=== PATIENT | female | born 2000 | race Caucasian/White ===

== ENCOUNTER 2022-11-20 20:03 | Emergency (ER) | payer OTHER ==
[~2022-11-20] VITALS: Ht 162.6 cm; Wt 59.0 kg
[2022-11-20] MEDS ORDERED: CIPRO500 MG PO (23:23)
== END 2022-11-20 23:56 | disposition home or self-care (01) ==
LOC: ER 20:03
DX: S81.811A Laceration without foreign body, right lower leg, initial encounter (principal); W17.1XXA Fall into storm drain or manhole, initial encounter; Y93.89 Activity, other specified; Y92.89 Other specified places as the place of occurrence of the external cause; Y99.9 Unspecified external cause status; Z87.09 Personal history of other diseases of the respiratory system

== ENCOUNTER 2022-11-29 15:37 | Emergency (ER) | payer OTHER ==
[~2022-11-29] VITALS: Ht 162.6 cm; Wt 59.0 kg
[~2022-11-29 15:37] MED LIST: CIPRO500 MG PO
== END 2022-11-29 19:19 | disposition home or self-care (01) ==
LOC: ER 15:37
DX: L03.818 Cellulitis of other sites (principal)

== ENCOUNTER 2022-12-04 17:46 | Emergency (ER) | payer OTHER ==
[~2022-12-04] VITALS: Ht 162.6 cm; Wt 59.0 kg
== END 2022-12-04 20:06 | disposition home or self-care (01) ==
LOC: ER 17:46
DX: Z48.02 Encounter for removal of sutures (principal)

== ENCOUNTER 2023-03-28 13:21 | Emergency (ER) | payer OTHER ==
[~2023-03-28] VITALS: Ht 162.6 cm; Wt 57.2 kg
[2023-03-28] MEDS ORDERED: YAZ 28 TABLET1 EACH (13:40)
== END 2023-03-28 19:40 | disposition home or self-care (01) ==
LOC: ER 13:21
DX: J02.8 Acute pharyngitis due to other specified organisms (principal); Z20.822 Contact with and (suspected) exposure to COVID-19
CPT/HCPCS: 36415; 96372; 99284; J1885